=== PATIENT | female | born 1985 | race Native Hawaiian/Other Pacific Islander ===

== ENCOUNTER 2016-08-03 06:21 | Emergency (ER) | payer MEDICAID, OTHER ==
[~2016-08-03 06:21] MED LIST: PERC5TAB12 PO; PREN0.01 PO
[2016-08-03 06:30] VITALS: BP 128/78; PULSE 89; RESP 22; TEMP 98.2; O2SAT 100
[2016-08-03 06:47] VITALS: BP 104/70; PULSE 51
[2016-08-03] MEDS ORDERED: LORazepam 2 MG/ML VIAL IV PUSH ONE (07:15)
[2016-08-03] MEDS ORDERED: SODIUM CHLORIDE 0.9% FLUSH 10 ML FLUSH IVF PRN (07:15)
--- NOTE | 2016-08-03 07:17 | PD ---
HPI Chief Complaint: Chest Pain Time Seen by Provider: 07:05 Travel History International Travel<30 days: No Contact w/Intl Traveler<30days: No Traveled to known affect area: No History of Present Illness HPI This is a 30-year-old female with no past medical history, who presents with complaints of upper extremity spasms, nausea, feeling of anxiety and anxiousness. The patient has a history of previous panic attacks according to her sister who is at the bedside. The patient reports she is going through life stressors. She states that when she woke up this morning to get a drink of water she started experiencing palpitations and nausea. She states then she started sprinting chest pain. When asked about her chest pain, she reports tightness across her anterior chest. She appears very anxious and is hyperventilating at the bedside. The patient denies any previous history of cardiac disease. She denies any long car rides, she denies any control pills, she denies any previous lower extremity trauma, she denies any tobacco use. PFSH Past Medical History Anxiety: Yes ?: Not LMP: 07/25/16 Social History Alcohol Use: No Tobacco Use: No Allergies-Medications (Allergen,Severity, Reaction): Coded Allergies: No Known Allergies (Unverified , 08/03/16) Reported Meds & Prescriptions Reported Meds & Active Scripts Active Vistaril (Hydroxyzine Pamoate) 25 Mg Cap 25 Mg PO TID PRN Review of Systems Except as stated in HPI: all other systems reviewed are Neg General / Constitutional: No: Fever, Chills HENT: No: Headaches, Lightheadedness Cardiovascular: Positive: Chest Pain or Discomfort (bilateral), Palpitations, No: Irregular Rhythm, Dyspnea on exertion Respiratory: No: Cough, Shortness of Breath Gastrointestinal: Positive: Nausea, No: Vomiting, Abdominal Pain Genitourinary: No: Frequency, Dysuria Musculoskeletal: Positive: Other (spasms of her hands.), No: Pain Neurologic: No: Weakness, Dizziness, Syncope (patient has a history of syncope from her panic attacks. No sick be today.), Headache, Change in Mentation Psychiatric: Positive: Anxiety, No: Disorder of Thought Physical Exam Narrative GENERAL: Well-developed well-nourished female, who appears anxious and is hyperventilating at the bedside. SKIN: Focused skin assessment warm/dry. HEAD: Atraumatic. Normocephalic. EYES: No scleral icterus. No injection or drainage. ENT: No nasal bleeding or discharge. Mucous membranes pink and moist. NECK: Trachea midline. Supple. CARDIOVASCULAR: Regular rate in the 70s and normal rhythm. No murmur appreciated. RESPIRATORY: No accessory muscle use. Clear to auscultation. Breath sounds equal bilaterally. GASTROINTESTINAL: Abdomen soft, non-tender, nondistended. MUSCULOSKELETAL: No obvious deformities. No clubbing. No cyanosis. No edema. NEUROLOGICAL: Awake and very anxious. No obvious cranial nerve deficits. Motor grossly within normal limits. Normal speech. Data Data Last Documented VS Vital Signs Date Time Temp Pulse Resp B/P Pulse Ox O2 Delivery O2 Flow Rate FiO2 08/03/16 07:32 71 17 106/71 100 Room Air 08/03/16 07:24 2 08/03/16 06:30 98.2 Orders Electrocardiogram (08/03/16 07:05) Basic Metabolic Panel (Bmp) (08/03/16 07:05) Ckmb (Isoenzyme) Profile (08/03/16 07:05) Complete Blood Count With Diff (08/03/16 07:05) Magnesium (Mg) (08/03/16 07:05) Prothrombin Time / Inr (Pt) (08/03/16 07:05) Act Partial Throm Time (Ptt) (08/03/16 07:05) Troponin I (08/03/16 07:05) Chest, Single Ap (08/03/16 07:05) Ecg Monitoring (08/03/16 07:05) Bilateral Bp Monitoring (08/03/16 07:05) Iv Access Insert/Monitor (08/03/16 07:05) Oximetry (08/03/16 07:05) Oxygen Administration (08/03/16 07:05) Sodium Chloride 0.9% Flush (Ns Flush) (08/03/16 07:15) Lorazepam Inj (Ativan Inj) (08/03/16 07:15) CKMB (08/03/16 06:50) CKMB% (08/03/16 06:50) Labs Laboratory Tests Test 08/03/16 06:50 White Blood Count 7.7 TH/MM3 Red Blood Count 4.70 MIL/MM3 Hemoglobin 13.4 GM/DL Hematocrit 39.7 % Mean Corpuscular Volume 84.5 FL Mean Corpuscular Hemoglobin 28.5 PG Mean Corpuscular Hemoglobin 33.8 % Concent Red Cell Distribution Width 12.4 % Platelet Count 268 TH/MM3 Mean Platelet Volume 9.1 FL Neutrophils (%) (Auto) 57.0 % Lymphocytes (%) (Auto) 34.7 % Monocytes (%) (Auto) 7.1 % Eosinophils (%) (Auto) 0.7 % Basophils (%) (Auto) 0.5 % Neutrophils # (Auto) 4.4 TH/MM3 Lymphocytes # (Auto) 2.7 TH/MM3 Monocytes # (Auto) 0.5 TH/MM3 Eosinophils # (Auto) 0.1 TH/MM3 Basophils # (Auto) 0.0 TH/MM3 CBC Comment DIFF FINAL Differential Comment Prothrombin Time 10.5 SEC Prothromb Time International 1.0 RATIO Ratio Activated Partial 25.6 SEC Thromboplast Time Sodium Level 139 MEQ/L Potassium Level 3.8 MEQ/L Chloride Level 104 MEQ/L Carbon Dioxide Level 18.5 MEQ/L Anion Gap 17 MEQ/L Blood Urea Nitrogen 12 MG/DL Creatinine 0.73 MG/DL Estimat Glomerular Filtration 92 ML/MIN Rate Random Glucose 97 MG/DL Calcium Level 9.5 MG/DL Magnesium Level 1.9 MG/DL Total Creatine Kinase 145 U/L Creatine Kinase MB 0.9 NG/ML Troponin I LESS THAN 0.02 NG/ML MDM Medical Decision Making Medical Screen Exam Complete: Yes Emergency Medical Condition: Yes Differential Diagnosis Anxiety versus ACS versus pulmonary embolus Narrative Course 30-year-old female who presents with complaints of chest pain/tightness, nausea. The patient has a history of panic attacks and was hyperventilating when I evaluated her. Blood work shows a low bicarbonate which is consistent with her hyperventilating when I evaluated her. The patient has been given 1 mg of Ativan. She is much more relaxed and is actually feeling in improved. EKG shows no evidence of acute process. She is not tachycardic. Cardiac enzymes are within normal limits. The patient has no cardiac risk factors. The patient has no PE risk factors. Saturations are 99% to 100% on room air. I believe she is suffering from a panic attack and will give her prescription for Vistaril. She'll be given information for [facility] to follow up for outpatient counseling. Diagnosis Primary Impression: Atypical chest pain Additional Impressions: suspected panic attack Acute hyperventilation syndrome Referrals: [facility] (Out patient) Patient Instructions: Narcotic given in the ED Additional Instructions: All up with outpatient psychiatry for your anxiety and life stressors. Take medication as needed for anxiety. Return if feeling worse. Med/Other Pt SpecificInfo: Prescription(s) given Scripts Hydroxyzine Pamoate (Vistaril)25 Mg Cap25 Mg PO TID PRN (ANXIETY) #30 CAP Ref 0 Prov:Antolin Crooks MD 08/03/16 Disposition: 01 DISCHARGE HOME Condition: Stable Antolin Crooks MD Aug 03, 2016 07:17 Antolin Crooks MD Aug 03, 2016 07:17
[2016-08-03 07:27] VITALS: BP 106/71; PULSE 74
[2016-08-03 07:32] VITALS: BP 106/71; PULSE 71; RESP 17; O2SAT 100
[2016-08-03 07:38] LABS: AUTOMATED NEUTROPHIL # 4.4 TH/MM3 (1.8-7.7); BASOPHIL % 0.5 % (0.0-2.0); EOSINOPHIL # 0.1 TH/MM3 (0-0.4); EOSINOPHIL % 0.7 % (0.0-4.0); HEMATOCRIT 39.7 % (35.0-46.0); HEMO FLAGS DIFF FINAL; LYMPH % 34.7 % (9.0-44.0); LYMPHOCYTE # 2.7 TH/MM3 (1.0-4.8); MEAN CELL VOLUME 84.5 FL (80.0-100.0); MEAN CORPUSCULAR HEMOGLOBIN 28.5 PG (27.0-34.0); MEAN CORPUSCULAR HGB CONC 33.8 % (32.0-36.0); MONO % 7.1 % (0.0-8.0); PLATELET COUNT 268 TH/MM3 (150-450); RED CELL DISTRIBUTION WIDTH 12.4 % (11.6-17.2); WHITE BLOOD COUNT 7.7 TH/MM3 (4.0-11.0)
[2016-08-03 07:49] LABS: APTT (PATIENT) 25.6 SEC (24.3-30.1); PROTHROMBIN TIME - PATIENT 10.5 SEC (9.8-11.6)
[2016-08-03 07:56] LABS: ANION GAP 17 MEQ/L (5-15); BICARBONATE 18.5 MEQ/L (21.0-32.0); BLOOD UREA NITROGEN 12 MG/DL (7-18); CHLORIDE 104 MEQ/L (98-107); GLOMERULAR FILTRATION RATE 92 ML/MIN (>89); MAGNESIUM 1.9 MG/DL (1.5-2.5); POTASSIUM 3.8 MEQ/L (3.5-5.1); SODIUM (NA) 139 MEQ/L (136-145)
[2016-08-03 08:00] LABS: CREATINE KINASE 145 U/L (26-192)
[2016-08-03 08:12] LABS: CKMB 0.9 NG/ML (0.5-3.6)
[2016-08-03 08:30] VITALS: BP 117/75; PULSE 72; RESP 16; O2SAT 99
[2016-08-03] MEDS ORDERED: VIST25CA PO (08:50)
--- NOTE | 2016-08-03 09:18 | RADRPT ---
EXAM DATE/TIME: 08/03/2016 07:22 [facility] COMPARISON: No previous studies available for comparison. INDICATIONS : Shortness of breath. MEDICAL HISTORY : Anxiety. SURGICAL HISTORY : None. ENCOUNTER: Initial ACUITY: 1 day PAIN SCORE: Non-responsive. LOCATION: Bilateral chest FINDINGS: A single view of the chest demonstrates the lungs to be symmetrically aerated without evidence of mas s, infiltrate or effusion. The cardiomediastinal contours are unremarkable. Osseous structures are intact. CONCLUSION: No acute disease. Fabrice Cruz MD FACR on August 03, 2016 at 9:15 Board Certified Radiologist. This report was verified electronically.
[2016-08-03 12:20] VITALS: BP 119/73
--- NOTE | 2016-08-04 09:51 | EKG ---
Date Performed: 08/03/2016 Time Performed: 06:52:02 PTAGE: 30 years EKG: Sinus rhythm POSSIBLE RIGHT VENTRICULAR CONDUCTION DELAY BORDERLINE ECG NO PREVIOUS TRACING DOCTOR: Dong Oconnor Interpretating Date/Time 08/04/2016 09:40:45
== END 2016-08-03 12:23 | disposition home or self-care (01) ==
LOC: NEPC 06:21
DX: R07.89 Other chest pain (principal); F45.8 Other somatoform disorders; F41.9 Anxiety disorder, unspecified; R00.2 Palpitations; R94.31 Abnormal electrocardiogram [ECG] [EKG]
CPT/HCPCS: 71010; 80048; 82550; 82552; 83735; 84484; 85025; 85610; 85730; 93005; 96374; 99285; J2060

== ENCOUNTER 2016-10-03 10:12 | Emergency (ER) | payer OTHER ==
[~2016-10-03] VITALS: Ht 147.3 cm; Wt 61.5 kg
[~2016-10-03 10:12] MED LIST changes: -PERC5TAB12 PO; -PREN0.01 PO; +VIST25CA PO
[2016-10-03 10:14] VITALS: BP 109/59; PULSE 80; RESP 18; TEMP 98.8; O2SAT 99
[2016-10-03] MEDS ORDERED: SODIUM CHLOR 0.9% 1000 ML INJ 1,000 ML IV SCH (10:33)
[2016-10-03 10:40] VITALS: PULSE 86; RESP 16; O2SAT 99
[2016-10-03] MEDS ORDERED: KETOROLAC TROMETHAMINE 30 MG/ML (IVP) VIAL IV PUSH ONE (10:45)
[2016-10-03] MEDS ORDERED: ONDANSETRON HCL 4 MG/2 ML VIAL IVP ONE (10:45)
[2016-10-03] MEDS ORDERED: SODIUM CHLORIDE 0.9% FLUSH 10 ML FLUSH IV FLUSH PRN (10:45)
--- NOTE | 2016-10-03 11:00 | PD ---
HPI Chief Complaint: Abdominal Pain Time Seen by Provider: 10:27 Travel History International Travel<30 days: No Contact w/Intl Traveler<30days: No Traveled to known affect area: No History of Present Illness HPI This is a 30-year-old female who presents to the emergency department with 2 days of left lower quadrant abdominal pain, constant, moderate severity, radiating to the back associated with some urinary urgency. She denies any fevers or chills. She denies any nausea or vomiting. She has not had any constipation or diarrhea. She says that her menstrual cycle is just coming to an end. She's never had pain like this before. She denies any vaginal discharge. PFSH Past Medical History Anxiety: Yes Diminished Hearing: No Psychiatric: Yes Tetanus Vaccination: < 5 Years Influenza Vaccination: Yes ?: Not LMP: 09/30/16 : 2 Para: 2 Past Surgical History Other Surgery: Yes (fatty tumor removed ) Social History Alcohol Use: No (pt denies) Tobacco Use: No (pt denies ) Substance Use: No (pt denies ) Allergies-Medications (Allergen,Severity, Reaction): Coded Allergies: No Known Allergies (Unverified , 10/03/16) Reported Meds & Prescriptions Reported Meds & Active Scripts Active Review of Systems Except as stated in HPI: all other systems reviewed are Neg Physical Exam Narrative GENERAL: Uncomfortable appearing. Moving all extremities. SKIN: Focused skin assessment warm and dry. HEAD: Atraumatic. Normocephalic. EYES: Pupils equal and round. No injection or drainage. ENT: Moist mucous membranes NECK: Trachea midline. CARDIOVASCULAR: Regular rate and rhythm. No murmur appreciated. RESPIRATORY: Clear to auscultation. Breath sounds equal bilaterally. 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 GASTROINTESTINAL: Abdomen soft, tender to palpation in the left lower quadrant with no rebound or guarding. MUSCULOSKELETAL: No obvious deformities. NEUROLOGICAL: Awake and alert. No obvious cranial nerve deficits. No dysarthria or aphasia. No upper or lower extremity drift. No upper extremity ataxia. Visual strange intact. PSYCHIATRIC: Appropriate mood and affect; insight and judgment normal. Data Data Last Documented VS Vital Signs Date Time Temp Pulse Resp B/P Pulse Ox O2 Delivery O2 Flow Rate FiO2 10/03/16 13:34 97.8 67 16 100/62 100 Room Air Orders Complete Blood Count With Diff (10/03/16 10:33) Comprehensive Metabolic Panel (10/03/16 10:33) Lipase (10/03/16 10:33) Urinalysis - C+S If Indicated (10/03/16 10:33) Ct Abd/Pel W/O Iv Contrast (10/03/16 10:33) Iv Access Insert/Monitor (10/03/16 10:33) Ecg Monitoring (10/03/16 10:33) Oximetry (10/03/16 10:33) Ondansetron Inj (Zofran Inj) (10/03/16 10:45) Sodium Chlor 0.9% 1000 Ml Inj (Ns 1000 M (10/03/16 10:33) Sodium Chloride 0.9% Flush (Ns Flush) (10/03/16 10:45) Ed Urine Pregnancytest Poc (10/03/16 10:33) Ketorolac Inj (Toradol Inj) (10/03/16 10:45) Hydromorphone Pf Inj (Dilaudid Pf Inj) (10/03/16 13:30) Wet Prep Profile (10/03/16 13:24) Gc And Chlamydia Pcr (10/03/16 13:24) Labs Laboratory Tests Test 10/03/16 10/03/16 10/03/16 10:40 12:32 13:20 White Blood Count 8.5 TH/MM3 Red Blood Count 4.40 MIL/MM3 Hemoglobin 12.7 GM/DL Hematocrit 38.3 % Mean Corpuscular Volume 87.0 FL Mean Corpuscular Hemoglobin 28.8 PG Mean Corpuscular Hemoglobin 33.1 % Concent Red Cell Distribution Width 12.9 % Platelet Count 281 TH/MM3 Mean Platelet Volume 8.6 FL Neutrophils (%) (Auto) 67.3 % Lymphocytes (%) (Auto) 25.3 % Monocytes (%) (Auto) 6.3 % Eosinophils (%) (Auto) 0.8 % Basophils (%) (Auto) 0.3 % Neutrophils # (Auto) 5.7 TH/MM3 Lymphocytes # (Auto) 2.1 TH/MM3 Monocytes # (Auto) 0.5 TH/MM3 Eosinophils # (Auto) 0.1 TH/MM3 Basophils # (Auto) 0.0 TH/MM3 CBC Comment DIFF FINAL Differential Comment Sodium Level 136 MEQ/L Potassium Level 3.9 MEQ/L Chloride Level 103 MEQ/L Carbon Dioxide Level 26.6 MEQ/L Anion Gap 6 MEQ/L Blood Urea Nitrogen 11 MG/DL Creatinine 0.56 MG/DL Estimat Glomerular Filtration 125 ML/MIN Rate Random Glucose 92 MG/DL Calcium Level 9.0 MG/DL Total Bilirubin 0.5 MG/DL Aspartate Amino Transf 17 U/L (AST/SGOT) Alanine Aminotransferase 33 U/L (ALT/SGPT) Alkaline Phosphatase 113 U/L Total Protein 7.7 GM/DL Albumin 3.6 GM/DL Lipase 137 U/L Urine Color YELLOW Urine Turbidity HAZY Urine pH 6.0 Urine Specific [place] 1.013 Urine Protein NEG mg/dL Urine Glucose (UA) NEG mg/dL Urine Ketones NEG mg/dL Urine Occult Blood TRACE Urine Nitrite NEG Urine Bilirubin NEG Urine Urobilinogen LESS THAN 2.0 MG/DL Urine Leukocyte Esterase MOD Urine RBC 1 /hpf Urine WBC 5 /hpf Urine Squamous Epithelial 2 /hpf Cells Urine Transitional Epithelial <1 /hpf Cells Urine Bacteria OCC /hpf Urine Mucus FEW /lpf Microscopic Urinalysis Comment CULT NOT INDICATED Clue Cells (Wet Prep) NONE SEEN Vaginal Trichomonas (Wet Prep) NONE SEEN Vaginal Yeast (Wet Prep) NONE SEEN MDM Medical Decision Making Medical Screen Exam Complete: Yes Emergency Medical Condition: Yes Interpretation(s) afebrile, no tachycardia, normotensive no leukocytosis electrolytes within normal limits Urinalysis: Negative for infection Last 24 hours Impressions Abdomen/Pelvis CT 10/03/16 1033 Signed Impressions: Service Date/Time: September 12:46 - CONCLUSION: 1. Mild mucosal edema with pericolonic inflammation along the distal descending colon. There is no significant associated diverticular disease. Focal segmental colitis may have this appearance. 2. No evidence of nephrolithiasis or obstructive uropathy. 3. Left renal cortical scarring. 4. No other significant abnormality. Juan M Barriga MD Differential Diagnosis Pancreatitis, gastritis, peptic ulcer disease, ruptured ovarian cyst, kidney stone, colitis Narrative Course This is a 30-year-old female who presents to the emergency department with left- sided abdominal pain that's been going on for several days. She was placed on a monitor and an IV was established labs are all unremarkable. Urinalysis was reassuring. CT abdomen and pelvis demonstrates likely colitis which would explain the patient's symptoms. She'll be discharged on antibiotics and pain control. Diagnosis Primary Impression: Colitis Patient Instructions: General Instructions Additional Instructions: If you develop severe or worsening abdominal pain, fever>100.4, persistent vomiting or inability to eat or drink return to the emergency department immediately. Follow up with your primary care physician in 1-2 days for a check-up. Med/Other Pt SpecificInfo: Prescription(s) given Scripts Tramadol 50 Mg Tab50 Mg PO Q6H PRN (PAIN) #10 TAB Ref 0 Prov:Uma Chavez MD 10/03/16 Metronidazole (Flagyl)500 Mg Tcc306 Mg PO BID 7 Days Ref 0 Prov:Uma Chavez MD 10/03/16 Ciprofloxacin 500 Mg Anr213 Mg PO BID 7 Days Ref 0 Prov:Uma Chavez MD 10/03/16 Disposition: 01 DISCHARGE HOME Condition: Stable Uma Chavez MD Oct 03, 2016 11:00
[2016-10-03 11:12] LABS: AUTOMATED NEUTROPHIL # 5.7 TH/MM3 (1.8-7.7); BASOPHIL % 0.3 % (0.0-2.0); EOSINOPHIL # 0.1 TH/MM3 (0-0.4); EOSINOPHIL % 0.8 % (0.0-4.0); HEMATOCRIT 38.3 % (35.0-46.0); HEMO FLAGS DIFF FINAL; LYMPH % 25.3 % (9.0-44.0); LYMPHOCYTE # 2.1 TH/MM3 (1.0-4.8); MEAN CORPUSCULAR HEMOGLOBIN 28.8 PG (27.0-34.0); MEAN CORPUSCULAR HGB CONC 33.1 % (32.0-36.0); MONO % 6.3 % (0.0-8.0); NEUT % 67.3 % (16.0-70.0); PLATELET COUNT 281 TH/MM3 (150-450); RED CELL DISTRIBUTION WIDTH 12.9 % (11.6-17.2); WHITE BLOOD COUNT 8.5 TH/MM3 (4.0-11.0)
[2016-10-03 11:35] LABS: ANION GAP 6 MEQ/L (5-15); AST (GOT) 17 U/L (15-37); BICARBONATE 26.6 MEQ/L (21.0-32.0); BLOOD UREA NITROGEN 11 MG/DL (7-18); CHLORIDE 103 MEQ/L (98-107); GLOMERULAR FILTRATION RATE 125 ML/MIN (>89); POTASSIUM 3.9 MEQ/L (3.5-5.1); SODIUM (NA) 136 MEQ/L (136-145)
[2016-10-03 11:37] LABS: ALT (GPT) 33 U/L (10-53)
[2016-10-03 11:39] LABS: ALKALINE PHOSPHATASE 113 U/L (45-117); TOTAL BILIRUBIN ADULT 0.5 MG/DL (0.2-1.0)
[2016-10-03 12:42] LABS: BACTERIA, URINE OCC /hpf; BLOOD, URINE TRACE (NEG); COMMENT (UR) CULT NOT INDICATED; CULTURE IF INDICATED CULT NOT INDICATED; GLUCOSE,URINE NEG (NEG); KETONE, URINE NEG (NEG); MUCUS URINE FEW /lpf (OCC); NITRITE,URINE NEG (NEG); SQUAMOUS EPITHELIAL CELL URINE 2 /hpf (0-5); TRANSITIONAL EPI CELLS, URINE <1 /hpf; URINE COLOR YELLOW (YELLW/STRAW)
[2016-10-03] MEDS ORDERED: HYDROmorphone HCL PF 1 MG/ML VIAL IV PUSH ONE (13:30)
[2016-10-03 13:34] VITALS: BP 100/62; PULSE 67; RESP 16; TEMP 97.8; O2SAT 100
--- NOTE | 2016-10-03 13:43 | RADRPT ---
EXAM DATE/TIME: 10/03/2016 12:46 [facility] COMPARISON: No previous studies available for comparison. INDICATIONS : Left lower flank pain radiating to the back. ORAL CONTRAST: No oral contrast ingested. RADIATION DOSE: 8.18 CTDIvol (mGy) MEDICAL HISTORY : None SURGICAL HISTORY : None. ENCOUNTER: Initial ACUITY: 1 day PAIN SCALE: 4/10 LOCATION: Left flank TECHNIQUE: Volumetric scanning of the abdomen and pelvis was performed. Using automated exposure control and ad justment of the mA and/or kV according to patient size, radiation dose was kept as low as reasonably achievable to obtain optimal diagnostic quality images. DICOM format image data is available electro nically for review and comparison. FINDINGS: LOWER LUNGS: The visualized lower lungs are clear. LIVER: Homogeneous density without lesion. There is no dilation of the biliary tree. No calcified gallston es. SPLEEN: Normal size without lesion. PANCREAS: Within normal limits. KIDNEYS: Cortical scarring is identified along the lateral margin left kidney. Kidneys are lies within normal limits in size and configuration. There is no evidence of hydronephrosis, nephrolithiasis or suspicio us mass. ADRENAL GLANDS: Within normal limits. VASCULAR: There is no aortic aneurysm. BOWEL/MESENTERY: Mild wall thickening and edema seen along the descending colon. In the distal descending colon there is pericolonic inflammation without evidence of discrete perforation. There is no evidence of patholo gic distention, organized fluid collections or free air. ABDOMINAL WALL: Within normal limits. RETROPERITONEUM: There is no lymphadenopathy. BLADDER: No wall thickening or mass. REPRODUCTIVE: Intrauterine device is noted in place. INGUINAL: There is no lymphadenopathy or hernia. MUSCULOSKELETAL: Within normal limits for patient age. CONCLUSION: 1. Mild mucosal edema with pericolonic inflammation along the distal descending colon. There is no si gnificant associated diverticular disease. Focal segmental colitis may have this appearance. 2. No evidence of nephrolithiasis or obstructive uropathy. 3. Left renal cortical scarring. 4. No other significant abnormality. Juan M Barriga MD on October 03, 2016 at 13:37 Board Certified Radiologist. This report was verified electronically.
[2016-10-03] MEDS ORDERED: TRAM50TA PO (13:55)
[2016-10-03] MEDS ORDERED: METR-1 PO (13:55)
[2016-10-03] MEDS ORDERED: CIPR500T2 PO (13:55)
[2016-10-03 14:01] VITALS: RESP 16
[2016-10-03 14:05] VITALS: BP 106/68; TEMP 97.8
[2016-10-03 17:45] LABS: CHLAMYDIA PCR NOT DETECTED (NOT DETECT); NEISSERIA PCR NOT DETECTED (NOT DETECT)
== END 2016-10-03 14:13 | disposition home or self-care (01) ==
LOC: NEPD 10:12
DX: K52.9 Noninfective gastroenteritis and colitis, unspecified (principal); R39.15 Urgency of urination; Z86.59 Personal history of other mental and behavioral disorders
CPT/HCPCS: 74176; 80053; 81001; 83690; 84703; 85025; 87210; 87491; 87591; 96361; 96374; 96375; 99285; J1170; J1885; J2405; J7030